=== PATIENT | male | born 2005 | race Two or more races ===

== ENCOUNTER 2025-07-15 01:49 | Inpatient (IN) | payer OTHER ==
[~2025-07-15] VITALS: Ht 165.1 cm; Wt 64.0 kg
[2025-07-15] MEDS ORDERED: PROAIR RESPICL90 MCG IH (02:07)
--- NOTE | 2025-07-15 02:07 | NUR ---
SE RECIBE PTE ALERTA, ORIENTADO X3 Y AMBULANDO. PTE REFIERE CONGESTION, TOS PRODCUTIVA HACE 4 LYONS. SE MIDEN S/V Y SE UBICA.
[2025-07-15] MEDS ORDERED: METHYLPREDNISOLONE SOD SUCC 125 MG VIAL IV STA (04:37)
[2025-07-15] MEDS ORDERED: ALBUTEROL SULFATE 3 ML/2.5 MG AMPUL.NEB IH SCH ×4 (04:45→15:00)
--- NOTE | 2025-07-15 05:40 | NUR ---
SE REALIZAN MUESTRAS DE LAB DARRYN ORDEN MEDICA Y BAJO MEDIDAS ASEPTICAS. SE NOTIFICAN TERAPIAS.
[2025-07-15 05:47] LABS: BASO % 0.7 % (0.1-1.2); EOS # 0.26 (0.04-0.54); EOS % 1.9 % (0.7-7.0); LYMPH # 0.90 (1.18-3.74); LYMPH % 6.7 % (19.3-53.1); MEAN PLATELET VOLUME 10.10 fl (9.4-12.4); MONO # 0.80 (0.24-0.82); MONO % 5.9 % (4.7-12.5); NEUT # 11.40 (1.56-6.13); NEUT % 84.6 % (34.0-71.1); RED CELL DISTRIBUTION WIDTH 13.6 % (11.6-14.4)
[2025-07-15] MEDS ORDERED: ALBUTEROL SULFATE 3 ML/2.5 MG AMPUL.NEB IH STA (06:04)
[2025-07-15] MEDS ORDERED: MAGNESIUM SULFATE 10,000 MG/20 ML VIAL IV STA (06:04)
--- NOTE | 2025-07-15 08:29 | NUR ---
SE RECIBE PTE. DEL TURNO ANERIOR CONCIENTE, ALERTA EN DEBBY CON BARRANDAS ELEVADAS ACOMPANADO DE FAMILIAR. IVF PATENTE. DRA. Clarence NICOLE RE-EVALUA PTE. SE NOTIFICA TERAPIAS A MR. RAYA Y A . FAISAL. SE ORIENTA SOBRE TRATAMIENTO Y MEDICAMENTOS LOS CUALES SE ADM. DARRYN ORDEN MEDICA, MUESTRAS TOMADAS Y SE ENVIAN AL LABORATORIO. TOMADA RADIOGRAFIA Y SE DON PTE. BAJO OBSERVACION POR CAMBIO.DIETA REQUISADA.
[2025-07-15 08:32] LABS: ALT/SGPT 28.0 U/L (12-78); AST/SGOT 48.0 U/L (15-37); BILIRUBIN TOTAL 0.48 mg/dL (0.3-1.2); BUN CREA RATIO 9.0 (7.0-25.0); CREATININE SERUM 1.17 mg/dL (0.70-1.30); GFR 80.31; GLOBULINA 4.2 G/DL (2.4-3.5); GLUCOSE FASTING 121.0 mg/dL (65-100); OSMOLALITY SERUM 276.0 MOSM/KG (275-295)
[2025-07-15 08:33] LABS: COVID-19 AG NEGATIVE (NEGATIVE)
--- NOTE | 2025-07-15 08:33 | NUR ---
SE DON PTE. CONCIENTE, ALERTA SIN CAMBIO AL MOMENTO.
[2025-07-15] MEDS ORDERED: 0.9 % SODIUM CHLORIDE 1,000 ML IV SCH (09:00)
[2025-07-15] MEDS ORDERED: FAMOTIDINE/PF 20 MG/2 ML VIAL IV SCH (09:00)
[2025-07-15] MEDS ORDERED: METHYLPREDNISOLONE SOD SUCC 125 MG VIAL IV SCH (09:00)
[2025-07-15] MEDS ORDERED: CEFTRIAXONE SODIUM 1,000 MG VIAL IV SCH (09:49)
[2025-07-15] MEDS ORDERED: AZITHROMYCIN 500 MG TABLET PO ONE (10:00)
[2025-07-15 10:08] VITALS: BP 132/83
[2025-07-15 10:14] VITALS: BP 132/83; O2SAT 96
--- NOTE | 2025-07-15 10:34 | NUR ---
DRA. Clarence NICOLE RE-EVALUA PTE. Y ADMITE A SERVICIO DE DR. SIERRA. SE ORIENTA SOBRE TRATAMIENTO, MEDICAMENTOS Y ADMISION. ORDENES DE ADMISION TOMADAS, FAMILIAR HACE ARREGLOS DE ADMISION.TERAPIA MARSHA POR MR. MATHEWS DIETA MARSHA Y TOLERADA, MEDICAMENTOS ADM. DARRYN ORDEN MEDICA, PTE. CONECTADO A MONITOR CARDIACO Y OXIMETRIA Y SE DON PTE. BAJO OBSERVACION POR CAMBIO.
[2025-07-15 11:45] VITALS: BP 109/66; BP 141/89; O2SAT 100; O2SAT 93
--- NOTE | 2025-07-15 12:00 | NUR ---
MUESTRA TOMADA Y SE ENVIA AL LABORATORIO.
[2025-07-15 15:30] VITALS: BP 129/85; O2SAT 98
[2025-07-15 19:56] VITALS: BP 127/74; O2SAT 96
[2025-07-16] VITALS: BP 130/71; O2SAT 96
[2025-07-16 05:00] VITALS: BP 127/55; O2SAT 99
[2025-07-16 08:16] VITALS: BP 138/77; O2SAT 94
[2025-07-16] MEDS ORDERED: AZITHROMYCIN 250 MG TABLET PO SCH (09:00)
[2025-07-16] MEDS ORDERED: METHYLPREDNISOLONE SOD SUCC 125 MG VIAL IV SCH (09:00)
[2025-07-16] MEDS ORDERED: BUDESONIDE 0.5 MG/2 ML AMPUL.NEB IH SCH (09:00)
[2025-07-16] MEDS ORDERED: BUDESONIDE 0.5 MG/2 ML AMPUL.NEB IH ONE (09:29)
[2025-07-16] MEDS ORDERED: ALBUTEROL SULFATE 3 ML/2.5 MG AMPUL.NEB IH ONE (09:30)
[2025-07-16] MEDS ORDERED: ALBUTEROL SULFATE 3 ML/2.5 MG AMPUL.NEB IH SCH (12:00)
[2025-07-16 12:10] VITALS: BP 123/63; O2SAT 95
[2025-07-16 16:16] VITALS: BP 109/68; O2SAT 96
[2025-07-16 20:00] VITALS: BP 121/75; O2SAT 97
[2025-07-17] VITALS: BP 121/74; O2SAT 97
[2025-07-17 04:00] VITALS: BP 133/54; O2SAT 97
[2025-07-17 05:59] LABS: BASO % 0.1 % (0.1-1.2); EOS # 0.00 (0.04-0.54); EOS % 0.0 % (0.7-7.0); LYMPH # 0.98 (1.18-3.74); LYMPH % 8.0 % (19.3-53.1); MEAN PLATELET VOLUME 10.20 fl (9.4-12.4); MONO # 0.77 (0.24-0.82); MONO % 6.3 % (4.7-12.5); NEUT # 10.41 (1.56-6.13); NEUT % 85.3 % (34.0-71.1); RED CELL DISTRIBUTION WIDTH 14.6 % (11.6-14.4)
[2025-07-17 08:00] VITALS: BP 140/54; O2SAT 98
[2025-07-17 12:00] VITALS: BP 132/75; O2SAT 97
[2025-07-17 16:28] VITALS: BP 140/80; O2SAT 98
[2025-07-17 20:30] VITALS: BP 111/67; O2SAT 98
[2025-07-18] VITALS: BP 126/70; O2SAT 96
[2025-07-18 04:00] VITALS: BP 113/62; O2SAT 98
[2025-07-18 08:00] VITALS: BP 123/70; O2SAT 99
[2025-07-18] MEDS ORDERED: METHYLPREDNISOLONE SOD SUCC 125 MG VIAL IV SCH (09:00)
[2025-07-18 12:00] VITALS: BP 127/78; O2SAT 99
[2025-07-18 15:29] VITALS: BP 127/69; O2SAT 100
[2025-07-18 20:44] VITALS: BP 112/70; O2SAT 99
[2025-07-18] MEDS ORDERED: METHYLPREDNISOLONE SOD SUCC 40 MG VIAL IV SCH (21:00)
[2025-07-19] VITALS: BP 126/77; O2SAT 98
[2025-07-19 04:00] VITALS: BP 128/54; O2SAT 98
[2025-07-19 07:20] LABS: BASO % 0.1 % (0.1-1.2); EOS # 0.00 (0.04-0.54); EOS % 0.0 % (0.7-7.0); LYMPH # 1.52 (1.18-3.74); LYMPH % 16.9 % (19.3-53.1); MEAN PLATELET VOLUME 11.10 fl (9.4-12.4); MONO # 0.92 (0.24-0.82); MONO % 10.2 % (4.7-12.5); NEUT # 6.53 (1.56-6.13); NEUT % 72.5 % (34.0-71.1); RED CELL DISTRIBUTION WIDTH 14.5 % (11.6-14.4)
[2025-07-19 08:00] VITALS: BP 128/84; O2SAT 98
[2025-07-19] MEDS ORDERED: ALBUTEROL2.5 MG/3 M IH (08:14)
[2025-07-19] MEDS ORDERED: AMOX-CLAV 875-1 EAC1 PO ×2 (08:14→08:16)
[2025-07-19] MEDS ORDERED: BUDESONIDE0.5 MG/2 M IH (08:14)
== END 2025-07-19 09:40 | disposition home or self-care (01) | DRG 203 ==
LOC: EMR PED 01:49 → ER 01:49 → EMR PED 02:42 → PED 10:30
PROVIDERS: Emergency Medicine Pediatric Emergency Medicine; General Practice; Student in an Organized Health Care Education/Training Program; ADMIT Emergency Medicine; ATTEND Emergency Medicine
PROC: 3E0F7GC Introduction of Other Therapeutic Substance into Respiratory Tract, Via Natural or Artificial Opening (ICD-10-PCS; principal; 2025-07-15)
PROC: 8E0ZXY6 Isolation (ICD-10-PCS; 2025-07-15)
DX: J45.901 Unspecified asthma with (acute) exacerbation (principal)